=== PATIENT | male | born 2000 | race Hispanic/Latino ===

== ENCOUNTER → 2021-04-28 | Outpatient (REF) | LOC: EDSTATUS 07:30 → M CARPUL 07:48 | PROVIDERS: ATTEND Internal Medicine | DX: Z13.6 Encounter for screening for cardiovascular disorders (principal) ==

== ENCOUNTER → 2021-05-11 | Outpatient (REF) | payer OTHER ==
--- NOTE | 2021-05-11 14:57 | REP ---
INDICATION: SOB. COMPARISON: No comparison chest x-ray. TECHNIQUE: Two views.. FINDINGS: The lungs are well inflated and free of infiltrate. The pleural angles are sharp. The heart size is normal. Pulmonary vasculature is not increased. No significant bony abnormality is seen. IMPRESSION: Negative chest x-ray. <Electronically signed by Greg Rider > 05/11/21 [id number]
== END ==
LOC: M RAD 14:17 → EDSTATUS 14:24 → M RAD 14:25
PROVIDERS: ATTEND Internal Medicine
DX: R06.02 Shortness of breath (principal)